=== PATIENT | female | born 1990 | race Caucasian/White ===

== ENCOUNTER 2021-06-24 10:46 | Emergency (ER) | payer BC, SELFPAY ==
[2021-06-24 11:59] VITALS: BP 112/78; PULSE 84; RESP 16; O2SAT 98; BMI 23.3
--- NOTE | 2021-06-24 12:10 | HMH.EDUTC ---
[facility] [place] Clinical Impression: Exposure to COVID-19 virus Sinusitis Qualifiers: Sinusitis location: unspecified location Chronicity: acute Recurrence: non-recurrent Qualified Code(s): J01.90 - Acute sinusitis, unspecified Disposition: Home, Self-Care Condition on Discharge: Good Instructions: DI for Sinusitis, Preventing the Spread of Coronavirus Discharge Instructions Additional Instructions: Drink plenty of fluids. Take tylenol or ibuprofen for pain or fever. Take the medications as directed. Follow up with your regular doctor. GO TO THE ER FOR ANY WORSENING SYMPTOMS Quarantine until you know the results of your covid-19 test. If it is positive, the health department should call you and give you further instructions about your length of Quarantine and other things. Notify your school or workplace of your results and follow their instructions regarding return to work/school. Prescriptions: Brompheniramine/Pseudoephed/Dm [Bromfed Dm Cough Syrup] 5 ml PO Q6HP PRN #240 syrup PRN Reason: Cough Transmission Status: Received by [facility] methylPREDNISolone [Medrol] 4 mg PO DIRECTED 6 Days #21 tab.ds.pk Transmission Status: Received by [facility] Azithromycin [Z-Ramiro 250mg Tab*] 250 mg PO UD DOSE PK #6 tab Transmission Status: Received by [facility] Referrals: Humberto Barger MD [Primary Care Provider] - Forms: Work/School Release Time of Disposition: 12:14 Medical Decision Making - Medical Records Medical records reviewed: No: I reviewed the patient's medical records. - Dionisio Inquiry Pt receiving controlled substance: No Vital Signs: 06/24/21 11:59 06/24/21 12:30 Temperature 98.3 F Temperature Source Oral Pulse Rate 84 Pulse Rate [Right] 84 Respiratory Rate 16 16 Blood Pressure 114/70 Blood Pressure [Right Arm] 112/78 Blood Pressure Mean [Right Arm] 89 Blood Pressure Source Automatic Cuff Blood Pressure Source [Right Arm] Automatic Cuff Blood Pressure Position Sitting Blood Pressure Position [Right Arm] Sitting 02 Sat by Pulse Oximetry 98 Oxygen Delivery Method Room Air Room Air - Lab Data Lab results reviewed: Yes: I reviewed the patient's lab results. [facility] [place] - General Stated complaint: s throat, cough Time Seen by Provider: 06/24/21 12:00 Mode of Arrival: Ambulatory Source of Information: Patient Limitations: No Limitations Description of Symptoms (Recalled from Triage Doc. by RN): sore thorat, congestion since yesterday HEENT Symptoms (Recalled from RN notes): No Resp Symptoms (Recalled from RN notes): No Skin Symptoms (Recalled from RN notes): No MS Symptoms (Recalled from RN notes): No Functional Status (Recalled from RN notes): na - History of Present Illness Provider Complaint: She c/o sinus pressure, sinus congestion, a scratchy sore throat and she has felt bad for the past 2 days. She has not been vaccinated against covid-19. She really thinks that she his getting a sinus infection. But, since she works with the public at the [employer], she would like to be tested for covid-19 also. - Related Data Previous Rx's Medication Instructions Recorded norgestimate 0.18 mg/0.215 mg/0.25 1 tab PO DAILY #28 tab 10/15/ mg-ethinyl estradiol 25 mcg tablet Azithromycin [Z-Ramiro 250mg Tab*] 250 mg PO UD DOSE PK #6 tab 06/24/21 Brompheniramine/Pseudoephed/Dm 5 ml PO Q6HP PRN #240 syrup 06/24/21 [Bromfed Dm Cough Syrup] methylPREDNISolone [Medrol] 4 mg PO DIRECTED 6 Days #21 06/24/21 tab.ds.pk Allergies Allergy/AdvReac Type Severity Reaction Status Date / Time No Known Allergies Allergy Verified 12/22/19 08:17 - Worker's Comp Is this a Worker's Comp case?: No [facility] History - Hepatitis A Screen Drug use history?: No High risk sexual behaviors?: No History of sexually transmitted infection?: No Currently employed?: No Childcare worker?: No Do you have indoor plumbing?: Yes Do you have elect
[2021-06-24 12:30] VITALS: BP 114/70; PULSE 84; RESP 16; TEMP 36.8; O2SAT 98
--- NOTE | 2021-06-24 17:44 | PC.NURSE ---
notified pt of positive results
[2021-06-25 09:54] LABS: UTC Strep Screen (Rapid) Negative (Negative)
== END 2021-06-24 12:31 | disposition home or self-care (01) ==
PROVIDERS: Emergency Provider Nurse Practitioner Family; PCP Family Medicine
DX: U07.1 COVID-19 (principal); J01.90 Acute sinusitis, unspecified
CPT/HCPCS: 87880; 99203; G0463; U0003

== ENCOUNTER → 2022-11-24 12:46 | Outpatient (CLI) | payer BC, SELFPAY ==
--- NOTE | 2022-11-24 12:46 | US_ITS ---
FINAL REPORT TECHNIQUE: Sonographic images of the pelvis were obtained transvaginally. CLINICAL HISTORY: [facility] FINDINGS: The uterus is anteverted and anteflexed. It measures 9.6 x 4.5 x 5.6 cm. There is focal thickening of the endometrial cavity near the internal os. This measures 9 mm and is somewhat rounded. Endometrial polyp cannot be excluded. Color imaging was not performed in this region. There is a subserosal left uterine fibroid measuring 2.3 cm. The right ovary measures 3.4 x 4.3 x 3.6 cm. There are small follicles and a simple 2.6 cm cyst. The left ovary measures 2.0 x 3.2 x 1.8 cm. It is normal in appearance. Color imaging to the ovaries is within normal limits. There is no free fluid. IMPRESSION: Right ovarian cyst. Due to size being under 3 cm and patient age this is presumed to be a functional cyst and does not require follow-up. Focal thickening of the endometrium. Polyp cannot be excluded. No color imaging performed of this region. Uterine fibroid. Reviewed, Interpreted and Dictated by Lory Velasquez MD Transcribed by Romain Kaye Authenticated and [facility]
== END ==
PROVIDERS: PCP Family Medicine; Visit Provider Nurse Practitioner Obstetrics & Gynecology
DX: N92.0 Excessive and frequent menstruation with regular cycle (principal)
CPT/HCPCS: 76830

== ENCOUNTER → 2022-12-02 09:36 | Outpatient (CLI) | payer BC, SELFPAY ==
[2022-12-02 09:55] LABS: Basophils # 0.1 K/mm3 (0-0.2); Basophils % 1.3 % (0.1-2.0); Eosinophils # 0.1 K/mm3 (0.0-0.4); Eosinophils % 1.7 % (0.1-12.0); Hematocrit 40.6 % (37.0-47.0); Hemoglobin 13.1 g/dL (12.2-16.2); Lymphocytes % 30.3 % (10-50); Mean Corpuscular HGB Conc 32.2 g/dL (31.8-35.4); Mean Corpuscular Hemoglobin 28.4 pg (27.0-31.2); Mean Corpuscular Volume 88.2 fl (81-99); Mean Platelet Volume 8.6 fl (7.4-10.4); Monocytes # 0.3 K/mm3 (0.1-1.0); Monocytes % 3.8 % (1.7-9.3); Neutrophils # 4.2 K/mm3 (1.8-7.8); Neutrophils % 62.8 % (37.0-80.0); Platelet Count 239 K/mm3 (142-424); Red Cell Distribution Width 12.8 % (11.5-17.5); White Blood Count 6.7 K/mm3 (4.8-10.8)
[2022-12-02 10:32] LABS: Alanine Aminotransferase 13 U/L (12-78); Albumin Level 4.2 g/dl (3.5-5.0); Albumin/Globulin Ratio 1.5 (1.1-1.8); Alkaline Phosphatase 64 U/L (38-126); Anion Gap 11.1 mEq/L (5-15); Aspartate Amino Transferase 17 U/L (14-36); Bilirubin,Total 0.3 mg/dl (0.2-1.3); Blood Urea Nitrogen 9 mg/dl (7-17); Calcium 8.8 mg/dl (8.4-10.2); Carbon Dioxide 23 mmol/L (22.0-30.0); Chloride 107 mmol/L (98-107); Estimated Glomerular Filt Rate 115 ml/min (>60); GFR (African American) 139 ML/MIN (>60); Globulin 2.8 g/dL (1.3-3.2); Glucose 100 mg/dl (74-100); Potassium 4.1 mmoL/L (3.5-5.1); Sodium 137 mmol/L (136-145)
[2022-12-02 10:52] LABS: HCG,Quantitative < 2 mIU/ml (0-5.42)
== END ==
PROVIDERS: PCP Family Medicine; Visit Provider Nurse Practitioner Obstetrics & Gynecology
DX: Z01.812 Encounter for preprocedural laboratory examination (principal); N92.0 Excessive and frequent menstruation with regular cycle
CPT/HCPCS: 36415; 80053; 84702; 85025

== ENCOUNTER 2022-12-04 06:04 | Day surgery (SDC) | payer BC, SELFPAY ==
[2022-12-01 12:15] VITALS: BMI 25.0
[2022-12-04] VITALS (9 sets, daily range): BP systolic 121–146; BP diastolic 47–89; PULSE 58–99; RESP 16–18; TEMP 36.4–43; O2SAT 97–100
--- NOTE | 2022-12-04 07:04 | EXP.ANES.CKL ---
[facility] Disclaimer: The information contained in this section may have been updated after the patient was seen, as this information can be updated by other users. Medical History (Updated 12/04/22 @ 06:37 by Madison Sheridan RN) Urinary tract infection Surgical History (Updated 12/04/22 @ 06:37 by Madison Sheridan RN) No significant past surgical history [place] teeth removed Family History Other Diabetes Heart attack Hypertension Stroke Social History (Updated 12/04/22 @ 06:37 by Madison Sheridan RN) Smoking Status: Never smoker alcohol intake: never substance use type: denies use current occupational status: employed Travel in the last 8 weeks: None caffeine: Yes [facility] Anesthesia Checklist Patient Identification Patient Identification: Verbal (Name & ) Structural Data Admitted From: Home Planned Operative Procedure/s: d/c,hyst,novasure Consent for Planned Operative Procedure(s) Verified: Yes Additional verifications Anesthesia Reactions: No Hx Blood Transfusions: No Blood Transfusion Reaction: No Airway Assessment C-Spine Mobility Assessed: Yes TMJ Mobility Assessed: Yes Dentition: Good Dentition Neurological Assessment Level of Consciousness: Awake, Alert and Appropriate Anesthesia Plan Anesthesia Risk discussed: Yes Anesthesia Plan: Verified ASA Class: II Anesthesia Type: General
--- NOTE | 2022-12-04 08:40 | EXP.OP.NOTE ---
Date of procedure: 12/04/22 Pre-op Diagnosis:: Desire for sterilization, menorrhagia, fibroid, polyp Post-op Diagnosis:: Desire for sterilization, menorrhagia, fibroid Procedure performed:: Laparoscopic bilateral salpingectomy, hysteroscopy, dilation and curettage, MyoSure, NovaSure ablation Surgeon:: Sampson Munoz MD VEGETABLE PREPARER:: Roderick Pryor Anesthesia: GETA Estimated blood loss (mL): 50 Clinical Note:: She is a 32-year-old lady who expresses desire for sterilization. She also has had extremely heavy periods and was thought to have a polyp within the endometrial cavity. She requested a NovaSure ablation. She also is known to have a fibroid within the uterus. Operative findings:: She had an anteverted bulky uterus and there was a 2 to 3 cm fibroid on the left side just above the cervix anterolaterally. The ovaries and tubes appeared normal. The appendix was seen and appeared normal. The upper abdomen appeared normal. The deep pelvis appeared normal. At the time of hysteroscopy the endometrium appeared lush there was no evidence of a polyp. I suspect that the polyp that we may have seen previously was just a formed clot. Operative note:: She was taken to the operating room where general anesthesia was found be adequate. She was prepped and draped in normal sterile fashion in the semilithotomy position. A weighted speculum was placed in the vagina and the anterior lip of the cervix was grasped with a tenaculum. I then inserted a Bessie uterine manipulator into the cervical os. The balloon was then insufflated. I changed gloves and injected 10 cc of 0.5% ropivacaine around her umbilicus and made a small incision within the umbilicus. I inserted a Veress needle into the abdominal cavity. The peritoneal cavity was then insufflated with carbon dioxide gas to a pressure of 20 mmHg. I then inserted a 5 millimeter trocar under direct vision. I injected through and through the pubic hairline, made a small incision here and inserted an 8 mm trocar under direct vision. I identified the inferior epigastric artery on the left side, went lateral to these and injected through and through. I then placed a 5 mm trocar here under direct vision. The pelvis and upper abdomen were then inspected and the findings were as previously dictated. I grasped the right tube at the cornua and using harmonic scalpel on coagulation mode I cut through the tube. I then grasped the distal tube and using harmonic scalpel cut along the mesosalpinx. The tube was removed through 8 mm trocar site. This was similarly performed on the patient's left side. I then injected 30 cc of 0.5% ropivacaine into the pelvis. After assuring hemostasis the gas was let out of the abdomen and hemostasis was once again assured. The abdomen was then reinsufflated. The secondary trochars were removed under direct vision. The gas was let out her abdomen. The primary trocar was then removed. The 8 mm trocar site was closed deeply with 2-0 Vicryl suture followed by subcuticular 4-0 Monocryl suture. The 5 mm trocar sites were closed with subcuticular 4-0 Monocryl. Sterile dressings were applied. A weighted speculum was placed in the vagina and the anterior lip of the cervix was grasped with a tenaculum. The cervix was then dilated to approximately 6 mm. I then inserted a MyoSure hysteroscope into the uterine cavity and the findings were as previously dictated. I used the MyoSure device to shave the endometrial cavity. I then performed a gentle curettage with a medium curette. I then sounded the uterus and determine the length of the uterus. I then inserted the NovaSure device and determine the width of the endometrial cavity. The length of the cavity was 6 cm and the width was 4.2 cm. This was placed into the NovaSure device. I then ran the device through its program. I further inspected the endometrial cavity and was found to be completely charred. I then injected 30 cc of 0.5% ropivacaine at th
--- NOTE | 2022-12-04 08:45 | P.PNANES_ITS ---
[facility] Anesthesia Record Part I Anesthesia Record I Intake, IV Amount: 1,300 Estimated blood loss (mL): 50 Urine output (mL): 0 Blood Products used (#): none Blood Pressure: 146/80 SaO2: 98 Pulse Rate: 97 Respiratory Rate: 16 Temperature: 99.3 F Patient is:: Drowsy and Stable Stable to PACU at:: 08:45
--- NOTE | 2022-12-04 19:15 | EXP.ANES.II ---
[facility] Anesthesia Record Part II Anesthesia Record Part II Discharge Time: 09:15 Destination: Surgical Day Care (OP Surgery) PACU nurse assessment reviewed?: Yes Patient Condition:: Good Anesthesia Complications:: None Swallowing reflex intact?: Yes Cyanosis?: No Blood Pressure: 137/77 Pulse Rate: 58 Temperature: 98.1 F Mental Status: Alert & Oriented Pain level:: 0 Nausea and/or vomitting:: None Intake, IV Amount: 0
== END 2022-12-04 09:45 | disposition home or self-care (01) ==
PROVIDERS: PCP Family Medicine; Visit Provider Nurse Practitioner Obstetrics & Gynecology
PROC: (CPT 58563; principal; 2022-12-04 07:30)
PROC: (CPT 58563; 2022-12-04 07:30)
DX: Z30.2 Encounter for sterilization (principal); N92.0 Excessive and frequent menstruation with regular cycle; D25.9 Leiomyoma of uterus, unspecified
CPT/HCPCS: 58563; 58661; 88302; 88305; 96374; J2405; J2710